=== PATIENT | female | born 1960 | race Caucasian/White ===

== ENCOUNTER 2024-12-29 17:40 | Emergency (ER) | payer OTHER ==
[~2024-12-29] VITALS: Ht 157.5 cm; Wt 80.0 kg
[2024-12-29 17:46] VITALS: BP 136/37; PULSE 93; RESP 18; TEMP 39.1; O2SAT 96
[2024-12-29] MEDS: ACETAMINOPHEN 325MG TABLET PO ONE (19:34)
== END 2024-12-29 20:13 | disposition home or self-care (01) ==
LOC: ER 17:40
DX: B34.9 Viral infection, unspecified (principal)
CPT/HCPCS: 71045; 99283